=== PATIENT | female | born 2000 ===

== ENCOUNTER 2018-04-30 11:39 | Emergency (ER) | payer OTHER, MEDICAID ==
--- NOTE | 2018-04-30 11:48 | UC ---
Lower Extremity/Ankle HPI - HPI Summary HPI Summary: 17 yo female presents accompanied by her brother with LEFT leg abrasions and pain. She tells me that last night she was walking on her porch and fell through a weak board. He left leg went through and she sustained abrasions to both sides of her leg/knee. She was able to walk immediately following. This morning noticed some bruising around the area. She is ambulatory without assistance and without a limp. Says that the skin around the abrasions feels "numb". - History of Current Complaint Chief Complaint: UCLowerExtremity Stated Complaint: R LEG INJURY Time Seen by Provider: 04/30/18 11:48 Hx Obtained From: Patient Onset/Duration: Sudden Onset Severity Initially: Moderate Severity Currently: Moderate Pain Intensity: 7 Pain Scale Used: 0-10 Numeric Able to Bear Weight: Yes - Allergies/Home Medications Allergies/Adverse Reactions: Allergies Allergy/AdvReac Type Severity Reaction Status Date / Time cetirizine [From [facility]] Allergy Swelling Verified 04/30/18 11:52 Of Face,Lips,& Throat Home Medications: Home Medications buPROPion SR TAB* [Wellbutrin SR TAB*] 150 mg PO BID 04/30/18 [History Confirmed 04/30/18] PMH/Surg Hx/FS Hx/Imm Hx Psychological History: Anxiety, Depression - Surgical History Surgical History: None - Family History Known Family History: Positive: None - Social History Occupation: Student Lives: With Family Alcohol Use: None Substance Use Type: None Smoking Status (MU): Never Smoked Tobacco Review of Systems Constitutional: Negative Skin: Other - Abrasions left knee/leg Respiratory: Negative Cardiovascular: Negative Neurovascular: Negative Musculoskeletal: Negative Neurological: Negative Psychological: Negative All Other Systems Reviewed And Are Negative: Yes Physical Exam - Summary Physical Exam Summary: GENERAL: NAD. WDWN. No pain distress. SKIN: Left lateral and medial knee with 10-12cm long superficial abrasions with mild ecchymosis. Moderate TTP. No warmth, drainage, or active bleeding. CHEST: No accessory muscle use. Breathing comfortably and in no distress. CV: . Pulses intact popliteal, PT, and DP. Cap refill <2seconds MSK: Left knee joint: FROM. Strength 5/5. No edema or obvious bony deformities. No patella apprehension. Negative Nila, A/P drawer, Aminta, and varus/ valgus stress. NEURO: Alert. Sensations intact and symmetric B/L LEs PSYCH: Age appropriate behavior. Triage Information Reviewed: Yes Vital Signs: Vital Signs: Temp Pulse Resp BP Pulse Ox 97.8 F 89 18 134/78 99 04/30/18 11:47 04/30/18 11:47 04/30/18 11:47 04/30/18 11:47 04/30/18 11:47 Vital Signs Reviewed: Yes Lower Extremity Course/Dx - Course Course Of Treatment: Suspect abrasions to left knee/leg. Pt is ambulatory without pain and knee exam is normal - low suspicion for MSK injury. Applied neosporin in the clinic and advised to continue applying for the next 2-3 days and return if she notices increased pain/redness/drainage. She declined crutches as she has these at home. - Differential Dx/Diagnosis Provider Diagnoses: Left leg abrasions Discharge - Sign-Out/Discharge Documenting (check all that apply): Patient Departure All imaging exams completed and their final reports reviewed: No Studies - Discharge Plan Condition: Stable Disposition: HOME Patient Education Materials: Abrasion (ED) Referrals: No Primary Care Phys,NOPCP [Primary Care Provider] - Additional Instructions: If you develop a fever, shortness of breath, chest pain, new or worsening symptoms - please call your PCP or go to the ED. 1) Apply antibiotic cream to the abrasions for the next 2-3 days. If you notice any increased redness, pain, or colored drainage - please follow up or be seen again. - Billing Disposition and Condition Condition: STABLE Disposition: Home
[2018-04-30 11:51] VITALS: BP 134/78
== END 2018-04-30 12:08 | disposition home or self-care (01) ==
LOC: UCEAST 11:39
DX: S80.812A Abrasion, left lower leg, initial encounter (principal); W19.XXXA Unspecified fall, initial encounter; Y93.01 Activity, walking, marching and hiking; Z88.8 Allergy status to other drugs, medicaments and biological substances; Y92.9 Unspecified place or not applicable
CPT/HCPCS: 99201; G0463